=== PATIENT | female | born 1965 | race Caucasian/White ===

== ENCOUNTER 2024-09-11 16:33 | Emergency (ER) | payer OTHER, SELFPAY ==
[2024-09-11 16:41] VITALS: BP 133/82; PULSE 72; RESP 20; TEMP 36.7; O2SAT 98
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
[2024-09-11] MEDS: Acetaminophen 500 MG TAB 1000 MG PO (18:32)
[2024-09-11] MEDS: Ketorolac 10 MG TAB PO (18:33)
[2024-09-11] MEDS: Cephalexin 500 MG CAP PO (18:33)
[2024-09-11 18:45] VITALS: BP 133/82; PULSE 72; RESP 20; TEMP 36.7; O2SAT 98
== END 2024-09-11 18:45 | disposition home or self-care (01) ==
PROVIDERS: Emergency Provider Physician Assistant
DX: S51.811A Laceration without foreign body of right forearm, initial encounter (principal); V18.0XXA Pedal cycle driver injured in noncollision transport accident in nontraffic accident, initial encounter
CPT/HCPCS: 12005